=== PATIENT | male | born 1940 | race Caucasian/White ===

== ENCOUNTER 2017-08-18 12:01 | Inpatient (IN) ==
[2017-08-18 12:25] LABS: Basophils # (Auto) 0 K/mcL (0.0-0.3); Basophils % (Auto) 0.2 % (0.0-2.0); Eosinophils # (Auto) 0.1 K/mcL (0.0-0.7); Eosinophils % (Auto) 1.5 % (0.0-7.0); Granulocytes % (Auto) 81.3 % (38.0-78.0); Lymphocytes # (Auto) 0.5 K/mcL (1.5-4.8); Lymphocytes % (Auto) 8.8 % (15.5-49.0); Mean Cell Volume 84.7 fL (80.0-100.0); Mean Corpuscular HGB Conc 33.3 g/dL (31.0-36.0); Mean Corpuscular Hemoglobin 28.2 pg (26.0-34.0); Monocytes # (Auto) 0.5 K/mcL (0.1-0.9); Monocytes % (Auto) 8.2 % (1.0-12.0); Platelet Count 85 K/mcL (140-440); RBC 3.89 M/mcL (4.50-5.90); Red Cell Distribution Width 14.6 % (11.5-14.5)
[2017-08-18] MEDS ORDERED: SODIUM POLYSTYRENE SULFONATE 15 GM/60 ML SUSPENSION PO ONE ×2 (12:34→17:17)
[2017-08-18] MEDS ORDERED: CALCIUM GLUCONATE 4.65 MEQ in DEXTROSE 5% IN WATER 50 ML IV ONE (12:34)
[2017-08-18] MEDS: 0.9 % SODIUM CHLORIDE 1,000 ML IV SCH (12:50)
[2017-08-18] MEDS ORDERED: CALCIUM CHLORIDE 1,000 MG/10 ML SYRINGE IV ONE (13:11)
--- NOTE | 2017-08-18 16:10 | Emergency Department Note ---
Recheck HPI - General Chief Complaint: Recheck/Abnormal Lab/Rx Stated Complaint: Hyperkalemia Time Seen by Provider: 08/18/17 15:09 Source: patient Mode of arrival: ambulatory Limitations: no limitations - History of Present Illness HPI Narrative: Elevated potassium 6.8 preop. Planning for left elbow bursa washout due to infection. Send over for further evaluation. Denies complaint,recently hospitalized at [facility] with similar findings but no symptoms. 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 No change in meds. No other concerns no chest pain or palpitations. notes that he is slightly weak in amount - Related Data Home Medications Medication Instructions Recorded Confirmed Carvedilol [Coreg] 25 mg PO BID 08/18/17 08/18/17 Finasteride [Proscar] 5 mg PO DAILY 08/18/17 08/18/17 Furosemide [Lasix] 20 mg PO DAILY 08/18/17 08/18/17 Lisinopril [Zestril] 20 mg PO DAILY 08/18/17 08/18/17 PARoxetine [Paxil] 20 mg PO DAILY 08/18/17 08/18/17 Pramipexole [Mirapex] 1 mg PO HS 08/18/17 08/18/17 Pregabalin [Lyrica] 120 mg PO BID 08/18/17 08/18/17 Spironolactone [Aldactone] 25 mg PO DAILY 08/18/17 08/18/17 traZODone HCL [Trazodone HCl] 50 mg PO DAILY 08/18/17 08/18/17 Allergies Allergy/AdvReac Type Severity Reaction Status Date / Time No Known Drug Allergies Allergy Verified 08/18/17 12:04 Review of Systems All systems ED: reviewed and negative except as stated. Past Medical History - Past Medical History Attestation: Yes: The following information was validated with the patient. Medical history: Reports: CHF, coronary artery disease Surgical history ED: Reports: non-contributory Family history: Reports: non-contributory - Social History smoking status: Never smoker Physical Exam Limitations: no limitations General appearance: alert, in no apparent distress Eye: Present: normal appearance ENT: normal exam, mucous membranes moist Neck: Present: normal inspection. Absent: lymphadenopathy Chest: Present: normal inspection Respiratory: Present: normal lung sounds bilaterally. Absent: respiratory distress Cardiovascular: Present: regular rate. Absent: systolic murmur Abdominal: Present: soft. Absent: tenderness Extremities: Present: other (2+ edema; left elbow bandaged, no active drainage or cellulitis beyond the bandage) Neurological: Present: alert, oriented X3 Skin: Present: warm Course Vital Signs Temperature 97.2 F 08/18/17 12:01 Pulse Rate 105 H 08/18/17 12:01 Respiratory Rate 20 08/18/17 12:01 Blood Pressure 130/75 08/18/17 12:01 Pulse Oximetry (%) 98 08/18/17 12:01 Temperature 97.2 F 08/18/17 12:01 Pulse Rate 55 L 08/18/17 15:46 Respiratory Rate 15 08/18/17 15:46 Blood Pressure 116/51 08/18/17 15:46 Pulse Oximetry (%) 96 08/18/17 15:46 Recheck/Abnormal Lab/Rx - Lab Data Lab results reviewed: Yes I reviewed the patient's lab results. Result diagrams: 08/18/17 12:14 Lab Results 08/18/17 08/18/17 08/18/17 Range/Units 12:14 12:23 15:36 WBC 5.7 (4.5-11.0) K/mcL RBC 3.89 L (4.50-5.90) M/mcL Hgb 11.0 L (13.5-16.5) g/dL Hct 32.9 L (41.0-55.0) % POC Hct 34.0 L 30.0 L (41.0-55.0) % MCV 84.7 (80.0-100.0) fL MCH 28.2 (26.0-34.0) pg MCHC 33.3 (31.0-36.0) g/dL RDW 14.6 H (11.5-14.5) % Plt Count 85 L (140-440) K/mcL MPV 10.8 H (7.4-10.4) fL Gran % 81.3 H (38.0-78.0) % Lymph % (Auto) 8.8 L (15.5-49.0) % [place] % (Auto) 8.2 (1.0-12.0) % Eos % (Auto) 1.5 (0.0-7.0) % Baso % (Auto) 0.2 (0.0-2.0) % Gran # 4.6 (1.8-8.0) K/mcL Lymph # (Auto) 0.5 L (1.5-4.8) K/mcL [place] # (Auto) 0.5 (0.1-0.9) K/mcL Eos # (Auto) 0.1 (0.0-0.7) K/mcL Baso # (Auto) 0 (0.0-0.3) K/mcL POC Sodium 131 L 133 (133-145) mmol/L POC Potassium 6.8 H* 6.0 H* (3.3-5.1) mmol/L POC Chloride 103 101 (96-108) mmol/L POC Total CO2 23 24 (22-30) mmol/L POC BUN 42 H 38 H (8-23) mg/dl POC Creatinine 2.2 H 2.2 H (0.7-1.2) mg/dl POC Glucose 89 135 H (70-105) mg/dL POC WB Ioniz Calcium 1.11 L 1.14 L (1.16-1.32) mmol/L - EKG Data EKG attestation: Yes I reviewed and interpreted this EKG. EKG results narrative: Slight peaked T's EKG shows normal: sinus rhythm Disposition Pt seen by MAINTENA[employer]CE [employer]/PA only: No Clinical Impression: Hyperkalemia Summary: Acute on chronic, no hemodynamic instability Suspect due to combination Aldactone and MARYA inhibitor Kayexalate, calcium gluconate, fluids causing partial reversal Patient pending for surgery tomorrow, admitted for observation and monitoring Disposition: Xfer As Outpt/Obs ([facility]) Condition: Good Referrals: Ed Charles DO [Primary Care Provider] -
--- NOTE | 2017-08-18 16:55 | Internal Med History&Physical ---
Medical - H&P: HPI Patient information: Note initiated : 08/18/17 at 4:49 pm Service Date, if different from initiated Date: [] Patient: Lawrence Tompkins a 76 y/o M admitted on for Hyperkalemia. Chief Complaint: [] History of present illness: Mr. Tompkins is a 76 year old M with history of heart failure, and multiple other medical problems presents to the emergency room today after being sent there from outpatient same-day surgery. The patient had been in the same day surgery suit for drainage of his infected bursa. His preop labs showed elevated potassium and therefore he was sent to the emergency room. The patient had no acute complaints or concerns. The patient has been started on Bactrim and Keflex by his surgeon I believe 3 or 4 days ago. The patient has a history of heart failure, was admitted at [facility] approximately a month ago I believe at the end of June with symptoms of heart failure. He also had similar problems with potassium at that time. His potassium was elevated. He was advised to stop his Aldactone and increase the dose of Lasix at the time of discharge. The patient however is still taking Aldactone or spironolactone at this time. I do not think he has made any changes to his dose of Lasix. The patient is also on lisinopril. In the ER the patient denies any acute complaints, admit to having some changes in vision, which makes it difficult to read, denies any headaches, chr dizziness alysa when standing, he has chronic shortness of breath that has been getting worse over the last few months. He has increased swelling in his legs and admits to weight gain. He also admits to distention of abdomen and irregular bowels in which he has intermittent constipation and diarrhea. Denies any acute constipation at present. In the emergency room patient had stable vital signs, had no increased oxygen needs, was afebrile, blood pressure on the lower end of normal. In the emergency room it was noted his potassium was 6.8, he received calcium gluconate as well as Kayexalate. Repeat potassium came down to 6.0. Patient also has elevated creatinine his creatinine at baseline was 1.6 from previous discharge, creatinine was 2.2 today. Patient is being admitted to the hospital given persistent hyperkalemia, worsening renal function. He wishes to be full code. All systems: reviewed and no additional remarkable complaints except as stated ( 10 point ROS done, neg as except for HPI) Medical - H&P: PMH Medical history: CAD, cath 2011 , follows with Dr Myla Chambers, [facility] pacemaker 2009 TIA HTN HLD Afib BPH FEMI, does not wear cpap Anxiety with depression RLS Chr thrombocytopenia CHF with preserved ventricular function Surgical history: hj/o appendectomy right knee sx, left ankle sx Pertinent family history: sister had AMI in her 50's brother with colon cancer mother RA Father with CAD and several OR Social history: lives in [facility] 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 Medical - H&P: Meds Home Medications Medication Instructions Recorded Confirmed Type Carvedilol [Coreg] 25 mg PO BID 08/18/17 08/18/17 History Finasteride [Proscar] 5 mg PO DAILY 08/18/17 08/18/17 History Furosemide [Lasix] 20 mg PO DAILY 08/18/17 08/18/17 History Lisinopril [Zestril] 20 mg PO DAILY 08/18/17 08/18/17 History PARoxetine [Paxil] 20 mg PO DAILY 08/18/17 08/18/17 History Pramipexole [Mirapex] 1 mg PO HS 08/18/17 08/18/17 History Pregabalin [Lyrica] 120 mg PO BID 08/18/17 08/18/17 History Spironolactone [Aldactone] 25 mg PO DAILY 08/18/17 08/18/17 History traZODone HCL [Trazodone HCl] 50 mg PO DAILY 08/18/17 08/18/17 History Allergies Allergy/AdvReac Type Severity Reaction Status Date / Time No Known Drug Allergies Allergy Verified 08/18/17 12:04 Medical - H&P: Exam - Constitutional Vitals: Temp Pulse Resp BP Pulse Ox 97.2 F 52 L 24 H 105/51 97 08/18/17 12:01 08/18/17 16:01 08/18/17 16:01 08/18/17 16:02 08/18/17 16:01 Exam: GENERAL: The patient is a well-developed, well-nourished in no apparent distress. Is alert and oriented x3. VITAL SIGNS: Reviewed and as noted elsewhere. HEENT: Head is normocephalic and atraumatic. Extraocular muscles are intact. Pupils are equal, round, and reactive to light. Nares appeared normal. Mouth appears any without lesions. Mucous membranes are moist. NECK: Normal to inspection, Supple, No lymphadenopathy or thyromegaly. LUNGS: Air entry equal on both sides, no wheezing, crackles or rhonchi noted. No accessory muscles of respiration HEART: Regular rate and rhythm normal, S1 and S2 heard, no Gallop, S3 or Rub Noted, systolic murmur, mitral region grade 3 ABDOMEN: Soft, nontender, and nondistended. Positive bowel sounds. No hepatosplenomegaly was noted. EXTREMITIES: No cyanosis, clubbing, rash, lesions , edema present ++ .left elbow covered in dressing. NEUROLOGIC: Cranial nerves II through XII are grossly intact. Motor and Sensory System Grossly Intact PSYCHIATRIC: Normal affect, Normal Mood. Appropriate Behavior. SKIN: No ulceration or wounds noted, No jaundice, No rash noted. Medical - H&P: Reslt - Labs CBC & Chem 7: 08/18/17 12:14 Labs: Short CBC 08/18/17 Range/Units 12:14 WBC 5.7 (4.5-11.0) K/mcL Hgb 11.0 L (13.5-16.5) g/dL Hct 32.9 L (41.0-55.0) % Plt Count 85 L (140-440) K/mcL Medical - H&P: A/P - Narrative A/P Narrative: A/P Acute hyperkalemia: secondary to Aldactone and MARYA, Use of Bactrim may have complicated picture, will hold all three meds for now, monitor on tele, IV fluids given in ER, Kayexalate and Torri given, will repeat dose of Kayexalate 30gms and recheck labs. Will have to hold off on MARYA or Aldactone in future. He was advised to hold off on Aldactone in his previous admission, but it seems he still continued to take it Infectious bursitis: start on vanco/ rocephin for now, ortho for InD tomorrow. Dizzines: Likely orthostatic in nature, hold bp meds Afib/ s/p pacemaker: supposed to be on sotalol as per discharge summary,not on present med list, will try to get proper med list, [facility] only filled antibiotics it seems CHF with preserved LVEF: on aldactone for same, also on lisionpril and sotalol. hold aldactone and lisninopril for now. get CXR HTN: hold meds for now till verfied Anxiety/ Depression: resume home meds DVT hep sq Diet cardiac Full code Obs status, anticipate d/c within 2 midnights.
[2017-08-18] MEDS ORDERED: VANCOMYCIN PER PHARMACY IV SCH (17:17)
[2017-08-18] MEDS ORDERED: NALOXONE HCL 0.4 MG/ML VIAL IV PRN (17:17)
[2017-08-18] MEDS ORDERED: ONDANSETRON 4 MG/2 ML VIAL IV PRN (17:17)
[2017-08-18] MEDS ORDERED: cefTRIAXone 2 GM VIAL IV SCH (17:17)
[2017-08-18] MEDS ORDERED: ACETAMINOPHEN 325 MG TABLET PO PRN (17:17)
--- NOTE | 2017-08-18 17:57 | XRay Report ---
CLINICAL INFORMATION: CHF COMPARISON: 05/15/2012 FINDINGS: Moderate cardiomegaly is unchanged. Pacemaker leads in stable satisfactory stable position. Mediastinum and pulmonary vessels are slightly distended and there is minimal interstitial edema in the lateral bases. Moderate sized consolidated infiltrate seen in the left base with small effusion. Small right basilar infiltrate noted. IMPRESSION: Moderate consolidated infiltrate or atelectasis left lower lobe with small effusion. Small infiltrate in the right lower lobe Mild CHF Interpreted and Authenticated by: Dutch Patel 08/18/17
[2017-08-18 18:28] LABS: Blood Urea Nitrogen 41 mg/dl (8-23)
[2017-08-18] MEDS ORDERED: FUROSEMIDE 40 MG/4 ML VIAL IV ONE (19:05)
[2017-08-18] MEDS: CARVEDILOL 12.5 MG TABLET PO SCH (19:31)
[2017-08-18] MEDS: PIPERACILLIN SODIUM/TAZOBACTAM 2.25 GM in DEXTROSE 5% IN WATER 50 ML IV SCH (19:57)
[2017-08-18] MEDS: cefTRIAXone 2 GM in DEXTROSE 5% IN WATER 50 ML IV SCH (20:46)
[2017-08-18] MEDS: PREGABALIN 100 MG CAPSULE PO SCH (20:54)
[2017-08-18] MEDS: PRAMIPEXOLE 1 MG TABLET PO SCH (20:55)
[2017-08-18] MEDS: HEPARIN 5,000 UNIT/ML VIAL SQ SCH (20:55)
[2017-08-18] MEDS ORDERED: VANCOMYCIN 1,000 MG in 0.9 % SODIUM CHLORIDE 250 ML IV ONE (21:00)
[2017-08-18] MEDS: 0.9 % SODIUM CHLORIDE 10 ML SYRINGE IV SCH (21:28)
[2017-08-18 22:10] LABS: Blood Urea Nitrogen 39 mg/dl (8-23)
[2017-08-18] MEDS ORDERED: traZODone HCL 50 MG TABLET ONE (22:21)
[2017-08-18] MEDS: traZODone HCL 50 MG TABLET PO SCH (22:29)
[2017-08-19] MEDS: 0.9 % SODIUM CHLORIDE 1,000 ML IV SCH (00:36)
[2017-08-19] MEDS: PIPERACILLIN SODIUM/TAZOBACTAM 2.25 GM in DEXTROSE 5% IN WATER 50 ML IV SCH ×5 (00:37→23:58)
[2017-08-19 05:37] LABS: Basophils # (Auto) 0 K/mcL (0.0-0.3); Basophils % (Auto) 0.3 % (0.0-2.0); Eosinophils # (Auto) 0.1 K/mcL (0.0-0.7); Eosinophils % (Auto) 1.9 % (0.0-7.0); Granulocytes % (Auto) 76.1 % (38.0-78.0); Lymphocytes # (Auto) 0.6 K/mcL (1.5-4.8); Mean Cell Volume 84.9 fL (80.0-100.0); Mean Corpuscular HGB Conc 33.1 g/dL (31.0-36.0); Mean Corpuscular Hemoglobin 28.1 pg (26.0-34.0); Monocytes # (Auto) 0.5 K/mcL (0.1-0.9); Monocytes % (Auto) 9.7 % (1.0-12.0); Platelet Count 82 K/mcL (140-440); RBC 3.64 M/mcL (4.50-5.90); Red Cell Distribution Width 14.3 % (11.5-14.5)
[2017-08-19 05:55] LABS: ALT/SGPT 19 U/l (0-40); Albumin 3.4 gm/dL (3.2-5.2); Albumin/Globulin Ratio 1.1 (1.0-2.3); Alkaline Phosphatase 66 U/L (39-117); Bilirubin,Direct < 0.2 mg/dL (0.0-0.3); Blood Urea Nitrogen 36 mg/dl (8-23); Gamma Glutamyl Transpeptidase 16 U/L (8-61); Uric Acid 7.5 mg/dL (2.5-8.0)
[2017-08-19] MEDS: 0.9 % SODIUM CHLORIDE 10 ML SYRINGE IV SCH ×5 (06:01→21:07)
--- NOTE | 2017-08-19 06:32 | XRay Report ---
CLINICAL INFORMATION: Pneumonia COMPARISON: 05/15/2012 08/18/2017 FINDINGS: Single lateral view is submitted correspond with a frontal view obtained two hours prior Moderate cardiomegaly is unchanged. Pacemaker leads in stable satisfactory position. Moderate left pleural effusion is noted with a small region consolidated atelectasis and/or infiltrate in the left lower lobe and lingula IMPRESSION: Moderate left pleural effusion. Small region of consolidated atelectasis or infiltrate inferior left lower lobe and lingula. Interpreted and Authenticated by: Dutch Patel 08/19/17
[2017-08-19] MEDS ORDERED: SODIUM POLYSTYRENE SULFONATE 15 GM/60 ML SUSPENSION PO ONE (06:58)
[2017-08-19] MEDS ORDERED: DEXTROSE 50% 50 ML VIAL IV ONE (06:58)
[2017-08-19] MEDS ORDERED: INSULIN REGULAR, HUMAN 1 UNIT/0.01 ML UNIT IV ONE (06:59)
[2017-08-19] MEDS ORDERED: FUROSEMIDE 40 MG/4 ML VIAL IV ONE (07:43)
[2017-08-19] MEDS ORDERED: ALBUTEROL SULFATE 2.5 MG/3 ML NEBULIZER ONE ×2 (07:57→08:14)
[2017-08-19] MEDS ORDERED: ALBUTEROL SULFATE 2.5 MG/3 ML NEBULIZER NEB SCH (08:07)
--- NOTE | 2017-08-19 08:20 | XRay Report ---
CLINICAL INFORMATION: CHF COMPARISON: 08/18/2017 FINDINGS: Moderate cardiomegaly is unchanged. Pacemaker and leads in stable satisfactory position. Mediastinum is unremarkable. Pulmonary vessels returned to normal in caliber. There is minimal residual interstitial edema in the mid and lower lungs. Left pleural effusion has decreased with [id number] residual. Small region of atelectasis or less likely infiltrate left base improved IMPRESSION: 1. Resolution in CHF. Only minimal residual edema in the mid lateral bases. No vascular congestion 2. Small/moderate left pleural effusion - improved from yesterday. Mild left lower lobe atelectasis Interpreted and Authenticated by: Dutch Patel 08/19/17
[2017-08-19] MEDS: CARVEDILOL 12.5 MG TABLET PO SCH ×2 (08:45→17:46)
[2017-08-19] MEDS: HEPARIN 5,000 UNIT/ML VIAL SQ SCH ×2 (08:46→21:05)
[2017-08-19] MEDS ORDERED: PREGABALIN 75 MG CAPSULE PO SCH (09:00)
[2017-08-19] MEDS ORDERED: PREGABALIN 150 MG CAPSULE PO SCH (09:00)
[2017-08-19] MEDS: FINASTERIDE 5 MG TABLET PO SCH (09:11)
[2017-08-19] MEDS: PARoxetine 20 MG TABLET PO SCH (09:11)
[2017-08-19] MEDS: PREGABALIN 100 MG CAPSULE PO SCH (09:17)
[2017-08-19] MEDS: traZODone HCL 50 MG TABLET PO SCH ×2 (09:17→22:27)
[2017-08-19] MEDS: VANCOMYCIN 1,500 MG in 0.9 % SODIUM CHLORIDE 500 ML IV SCH (09:37)
--- NOTE | 2017-08-19 11:36 | Internal Med Progress Note ---
Medical - PN: Subj Patient information: Note initiated : 08/19/17 at 11:32 am Service Date, if different from initiated Date: [] Patient: Lawrence Tompkins a 76 y/o M admitted on 08/18/17 for Hyperkalemia. Chief Complaint: [] Interval history: Mr. Tompkins is a 76 year old M with history of heart failure, and multiple other medical problems presents to the emergency room today after being sent there from outpatient same-day surgery. The patient had been in the same day surgery suit for drainage of his infected bursa. His preop labs showed elevated potassium and therefore he was sent to the emergency room. The patient had no acute complaints or concerns. The patient has been started on Bactrim and Keflex by his surgeon I believe 3 or 4 days ago. The patient has a history of heart failure, was admitted at [facility] approximately a month ago I believe at the end of June with symptoms of heart failure. He also had similar problems with potassium at that time. His potassium was elevated. He was advised to stop his Aldactone and increase the dose of Lasix at the time of discharge. The patient however is still taking Aldactone or spironolactone at this time. I do not think he has made any changes to his dose of Lasix. The patient is also on lisinopril. In the ER the patient denies any acute complaints, admit to having some changes in vision, which makes it difficult to read, denies any headaches, chr dizziness alysa when standing, he has chronic shortness of breath that has been getting worse over the last few months. He has increased swelling in his legs and admits to weight gain. He also admits to distention of abdomen and irregular bowels in which he has intermittent constipation and diarrhea. Denies any acute constipation at present. In the emergency room patient had stable vital signs, had no increased oxygen needs, was afebrile, blood pressure on the lower end of normal. In the emergency room it was noted his potassium was 6.8, he received calcium gluconate as well as Kayexalate. Repeat potassium came down to 6.0. Patient also has elevated creatinine his creatinine at baseline was 1.6 from previous discharge, creatinine was 2.2 today. Patient is being admitted to the hospital given persistent hyperkalemia, worsening renal function. He wishes to be full code. 08/19 Pt seen examined, no acute overnight issues, his cxr concerning for chf and pna , he was started on abx, and IV lasix given, this AM repeat CXR shows resolved chf, and left side effusion with atelectasis. procalcitonin is neg, The patient notes he has had some accident in the past, and has had left sided lung issues, his previous imaging including CTA done in the previous hsopitaliztion does not show any malignancy. The patient remains hyperkalemic, K was 5.9 yesterday, and is 5.8 today, creat is 2.3 garduno placed with clear urine draining, pt is neg 4500 so far repeat kayexalate given, albuterol harrt neg, IV lasix, dextrose and insulin given this AM, repeat K is pending, if improved ok to go for surgery Given persistent hyperkalemia, concern for chf, pna, hang, his status was changed to inpt status since yesterday Pertinent ROS: Denies headache, dizziness Denies chest pain, palpitations Denies cough or shortness of breath Denies abdominal pain, nausea or vomiting. - Constitutional Vitals: Vital Signs Temp Pulse Resp BP Pulse Ox 98.3 F 66 20 129/66 98 08/19/17 07:41 08/19/17 08:29 08/19/17 08:29 08/19/17 07:41 08/19/17 07:41 Period Temp Pulse Resp BP Sys/Burnett Pulse Ox Last 24 Hr 97.2 F-98.9 F 41-133 13-24 105-165/44-133 87-99 Intake and Output 08/18/17 08/19/17 08/19/17 21:59 05:59 13:59 Intake Total 1050 / 1050 650 / 650 50 / 50 Output Total 1800 / 1800 2450 / 2450 1350 / 1350 Balance -750 / -750 -1800 / -1800 -1300 / -1300 Weight 210 lb 3.2 oz Intake & Output: Intake & Output 08/18/17 08/19/17 08/19/17 21:59 05:59 13:59 Intake Total 1050 / 1050 650 / 650 50 / 50 Output Total 1800 / 1800 2450 / 2450 1350 / 1350 Balance -750 / -750 -1800 / -1800 -1300 / -1300 Weight 210 lb 3.2 oz Intake: IV 1050 / 1050 350 / 350 50 / 50 Sodium Chloride 0.9% 1,000 ml @ 1000 / 1000 250 mls/hr IV .Q4H [facility] Rx#: [id number] Zosyn 2.25 gm In Dextrose 5% in 50 / 50 50 / 50 50 / 50 Water 50 ml @ 100 mls/hr IV Q6H [facility] Rx#:[id number] Rocephin 2 gm In Dextrose 5% in 50 / 50 Water 50 ml @ 100 mls/hr IV Q24H [facility] Rx#:[id number] GI Tube Flush 300 / 300 Output: Urine Catheter Amount 850 / 850 Urine/Stool Mix 1800 / 1800 2450 / 2450 500 / 500 Other: Stool Size Moderate Small Stool Color Yellow Brown Brown Stool Consistency Watery Liquid Liquid # of times incontinent of 1 Bowels Exam: Constitutional; Afebrile, cooperative, alert, not in distress. Eyes- No icterus, , No periorbital swelling Ears- Ext ear normal, hearing normal to conversation. Neck- Midline trachea, supple Respiratory system: Air Entry equal on both sides, No crackles or wheezing, no rhonchi. CVS- Rate rhythm regular, S1,S2 heard, no gallop, no rub. 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 Medical - PN: Obj Da - Labs CBC & Chem 7: 08/19/17 03:40 08/19/17 03:40 Labs: Abnormal Lab Results 08/19/17 08/19/17 08/18/17 03:40 03:40 17:29 RBC 3.64 L Hgb 10.2 L Hct 30.9 L POC Hct RDW Plt Count 82 L MPV 10.7 H Gran % Lymph % (Auto) 12.0 L Lymph # (Auto) 0.6 L POC Sodium POC Potassium Potassium 5.8 H 5.9 H* Chloride 95 L POC BUN BUN 36 H 39 H Creatinine 2.3 H 2.0 H POC Creatinine POC Glucose Calcium 8.3 L 8.5 L POC WB Ioniz Calcium 08/18/17 08/18/17 08/18/17 17:29 15:36 12:23 RBC Hgb Hct POC Hct 30.0 L 34.0 L RDW Plt Count MPV Gran % Lymph % (Auto) Lymph # (Auto) POC Sodium 131 L POC Potassium 6.0 H* 6.8 H* Potassium 6.0 H* Chloride POC BUN 38 H 42 H BUN 41 H Creatinine 2.2 H POC Creatinine 2.2 H 2.2 H POC Glucose 135 H Calcium 8.5 L POC WB Ioniz Calcium 1.14 L 1.11 L 08/18/17 12:14 RBC 3.89 L Hgb 11.0 L Hct 32.9 L POC Hct RDW 14.6 H Plt Count 85 L MPV 10.8 H Gran % 81.3 H Lymph % (Auto) 8.8 L Lymph # (Auto) 0.5 L POC Sodium POC Potassium Potassium Chloride POC BUN BUN Creatinine POC Creatinine POC Glucose Calcium POC WB Ioniz Calcium Meds: Medications Acetaminophen (Tylenol) 650 mg PO Q6HP PRN PRN Reason: PAIN/FEVER > 101 Carvedilol (Coreg) 25 mg PO BIDCC [facility] Last Admin: 08/19/17 08:45 Dose: 25 mg Finasteride (Proscar) 5 mg PO DAILY [facility] Last Admin: 08/19/17 09:11 Dose: 5 mg Heparin Sodium (Porcine) (Heparin) 5,000 unit SQ Q12 [facility] Last Admin: 08/19/17 08:46 Dose: 5,000 unit Piperacillin Sod/Tazobactam (Sod 2.25 gm/ Dextrose) 50 mls @ 100 mls/hr IV Q6H [facility] Last Infusion: 08/19/17 06:02 Dose: Infused Ceftriaxone Sodium 2 gm/ (Dextrose) 50 mls @ 100 mls/hr IV Q24H [facility] Last Infusion: 08/19/17 00:35 Dose: Infused Vancomycin HCl 1,500 mg/ (Sodium Chloride) 500 mls @ 250 mls/hr IV Q24H [facility] Last Admin: 08/19/17 09:37 Dose: 333 mls/hr Naloxone HCl (Narcan) 0.1 mg IV Q2MIN PRN PRN Reason: Opiate Reversal Ondansetron HCl (Zofran) 4 mg IV Q4HP PRN PRN Reason: Nausea And Vomiting Oxycodone/Acetaminophen (Percocet 5-325 Mg) 1 tab PO Q4HP PRN PRN Reason: PAIN LEVEL 3-6 Paroxetine HCl (Paxil) 20 mg PO DAILY [facility] Last Admin: 08/19/17 09:11 Dose: 20 mg Pramipexole Dihydrochloride (Mirapex) 1 mg PO HS [facility] Last Admin: 08/18/17 20:55 Dose: 1 mg Pregabalin (Lyrica) 120 mg PO BID [facility] Last Admin: 08/19/17 09:17 Dose: Not Given Sodium Chloride (Saline Flush) 10 ml IV Q8 [facility] Last Admin: 08/19/17 07:36 Dose: 10 ml Trazodone HCl (Desyrel) 50 mg PO DAILY [facility] Last Admin: 08/19/17 09:17 Dose: Not Given Vancomycin HCl (Vancomycin Per Pharmacy) 1 order IV UD [facility] Medical - PN: A/P - Time Spent With Patient Total time spent is greater than 50% in coordination of care (as documented) at patient's floor/unit and/or counseling patient: - Narrative A/P Narrative: A/P Acute hyperkalemia: still present, rest of lytes stable, no elevation of phos, or mg, or uric acid, garduno placed, remains on tele monitor, repeat dose of kayexalate given, IV lasix and albuterol with insulin and d50 given. repeat K, still likely due to medications, renal failure playing a role. chr thyrombocytopenia : pchr issue, Plat[place] count > 75, monitor for now. Infectious bursitis: vs septic elbow? on vanco and zosyn for now, plan for sx today if K is improved PNA/ HCAP: noted on x ray done yesterday, not sure if true pna, procalcitonin is neg, pt does have chr changes in the left side as noted on previous imaging, continue abx for now till cultures are negative, no e/o sepsis Dizzines: Likely orthostatic in nature, he does have elevated hr on orthostatics. Afib/ s/p pacemaker: resume sotalol, continue coreg, CHF with preserved LVEF: on aldactone for same, also on lisionpril and sotalol. hold aldactone and lisninopril for now. mild chf noted yesterday has resolved today, not on oxgyen HTN: resume meds except lisinopril and aldactone. Anxiety/ Depression: resume home meds DVT hep sq npo status for now Full code Medical - PN: Qual - Stroke Symptom Onset Unknown: No - VTE Deep Vein Thrombosis/Pulmonary Embolism Present on Admission: No
[2017-08-19] MEDS ORDERED: TEMAZEPAM 7.5 MG PO PRN (11:41)
[2017-08-19] MEDS ORDERED: PRAMIPEXOLE 0.25 MG TABLET PO PRN (11:45)
[2017-08-19 12:23] LABS: Blood Urea Nitrogen 32 mg/dl (8-23)
[2017-08-19] MEDS ORDERED: 0.9 % SODIUM CHLORIDE 250 ML IV SCH (13:30)
--- NOTE | 2017-08-19 13:32 | Brief Operative Note ---
Date of procedure: 08/19/17 Pre-op diagnosis: left elbow olecranon bursitis Post-op diagnosis: same Procedure: left olecranon septic bursitis debridement and irrigate Grafts/Implants: Yes Anesthesia: GETA Complications Description: 08/19/17 13:32 none Surgeon: Junaid Tatum Stationary Equipment Mechanic: Fernando Edwards Estimated blood loss (cc): 10 Tourniquet Time (Minutes): 0 Specimens Removed/Pathology: none sent Condition: stable Disposition: PACU
[2017-08-19] MEDS ORDERED: HYDROcodone/APAP 5/325MG TABLET PO PRN (13:33)
[2017-08-19] MEDS ORDERED: PHENYLEPHRINE 10 MG/ML VIAL IV ONE (13:45)
[2017-08-19] MEDS ORDERED: ePHEDrine 50 MG/ML AMPUL IV ONE (13:45)
[2017-08-19] MEDS ORDERED: CIALIS 10 MG PO SCH (13:45)
[2017-08-19] MEDS ORDERED: DEXAMETHASONE 10 MG/ML VIAL IV ONE (13:45)
[2017-08-19] MEDS ORDERED: KETAMINE 100 MG/ML ML IV ONE (13:45)
[2017-08-19] MEDS ORDERED: ONDANSETRON 4 MG/2 ML VIAL IV ONE (13:45)
[2017-08-19] MEDS ORDERED: PROPOFOL 200 MG/20 ML VIAL IV ONE (13:45)
[2017-08-19] MEDS ORDERED: MIDAZOLAM 2 MG/2 ML VIAL IV ONE (13:45)
[2017-08-19] MEDS ORDERED: LIDOCAINE HCL/PF 100 MG/5 ML SYRINGE IV ONE (13:45)
[2017-08-19] MEDS ORDERED: GLYCOPYRROLATE 0.2 MG/ML VIAL IV ONE (13:45)
--- NOTE | 2017-08-19 13:51 | Discharge Summary ---
Ortho Discharge Plan - General - Patient Instructions Diet: Regular Diet Activity: activity as tolerated, weight bearing as tolerated Dressing Care: May shower in 2 days, Cover dressing in shower - Follow Up Plan Follow Up Appointments: Ed Charles DO [Primary Care Provider] - Disposition: Home, Self-Care Prognosis: Good Rehab Potential: Good I certify that the patient requires SNF services: No Overall status at discharge: patient is progressing back to baseline - Orders For Discharge Prescriptions: oxyCODONE/APAP [Percocet 5-325 mg] 1 tab PO Q4HP PRN #60 tab PRN Reason: Pain Level 3-6
[2017-08-19] MEDS ORDERED: ceFAZolin 1 GM VIAL IV SCH (14:00)
[2017-08-19] MEDS ORDERED: 0.9 % SODIUM CHLORIDE 10 ML SYRINGE IV SCH (14:00)
[2017-08-19] MEDS ORDERED: GENTAMICIN SULFATE 800 MG/20 ML VIAL IR ONE (14:12)
[2017-08-19] MEDS ORDERED: IPRATROPIUM/ALBUTEROL 3 ML AMPUL.NEB NEB PRN (14:15)
[2017-08-19] MEDS ORDERED: METHOCARBAMOL 1,000 MG/10 ML VIAL IV PRN (14:15)
[2017-08-19] MEDS ORDERED: ACETAMINOPHEN 1,000 MG/100 ML BOTTLE IV ONE (14:15)
[2017-08-19] MEDS ORDERED: PROMETHAZINE 25 MG/ML VIAL IV PRN (14:15)
[2017-08-19] MEDS ORDERED: MEPERIDINE 25 MG/ML SYRINGE IV PRN (14:15)
[2017-08-19] MEDS ORDERED: ONDANSETRON 4 MG/2 ML VIAL IV PRN (14:15)
[2017-08-19] MEDS ORDERED: ATROPINE SULFATE 0.4 MG/ML VIAL IV PRN (14:15)
[2017-08-19] MEDS ORDERED: fentaNYL 100 MCG/2 ML VIAL IV PRN (14:15)
[2017-08-19] MEDS ORDERED: ePHEDrine 50 MG/ML AMPUL IV PRN (14:15)
[2017-08-19] MEDS ORDERED: METOPROLOL TARTRATE 5 MG/5 ML VIAL IV PRN (14:15)
[2017-08-19] MEDS ORDERED: diphenhydrAMINE 50 MG/ML VIAL IV PRN (14:15)
[2017-08-19] MEDS ORDERED: NALOXONE HCL 0.4 MG/ML VIAL IV PRN (14:15)
[2017-08-19] MEDS: cefTRIAXone 2 GM in DEXTROSE 5% IN WATER 50 ML IV SCH (16:12)
[2017-08-19] MEDS: FUROSEMIDE 40 MG/4 ML VIAL IV SCH (17:15)
[2017-08-19] MEDS: PREGABALIN 75 MG CAPSULE PO SCH (21:04)
[2017-08-19] MEDS: SIMVASTATIN 40 MG TABLET PO SCH (21:05)
[2017-08-19] MEDS: PRAMIPEXOLE 1 MG TABLET PO SCH (21:05)
[2017-08-19] MEDS: MAGNESIUM OXIDE 400 MG TABLET PO SCH (21:05)
[2017-08-19] MEDS: TAMSULOSIN 0.4 MG CAPSULE PO SCH (21:05)
[2017-08-19] MEDS: SOTALOL 80 MG TABLET PO SCH (21:06)
[2017-08-20] MEDS: oxyCODONE/APAP 5/325MG TABLET PO PRN ×2 (02:06→22:41)
[2017-08-20 05:05] LABS: Basophils # (Auto) 0 K/mcL (0.0-0.3); Basophils % (Auto) 0.2 % (0.0-2.0); Eosinophils # (Auto) 0 K/mcL (0.0-0.7); Eosinophils % (Auto) 0 % (0.0-7.0); Granulocytes % (Auto) 83.9 % (38.0-78.0); Lymphocytes # (Auto) 0.5 K/mcL (1.5-4.8); Lymphocytes % (Auto) 11.4 % (15.5-49.0); Mean Cell Volume 84.8 fL (80.0-100.0); Mean Corpuscular HGB Conc 33.1 g/dL (31.0-36.0); Mean Corpuscular Hemoglobin 28.1 pg (26.0-34.0); Monocytes # (Auto) 0.2 K/mcL (0.1-0.9); Monocytes % (Auto) 4.5 % (1.0-12.0); Platelet Count 99 K/mcL (140-440); RBC 3.87 M/mcL (4.50-5.90); Red Cell Distribution Width 14.6 % (11.5-14.5)
[2017-08-20] MEDS: 0.9 % SODIUM CHLORIDE 10 ML SYRINGE IV SCH ×4 (05:27→22:43)
[2017-08-20] MEDS: PIPERACILLIN SODIUM/TAZOBACTAM 2.25 GM in DEXTROSE 5% IN WATER 50 ML IV SCH (05:28)
[2017-08-20 05:31] LABS: ALT/SGPT 14 U/l (0-40); Albumin 3.4 gm/dL (3.2-5.2); Albumin/Globulin Ratio 1.1 (1.0-2.3); Alkaline Phosphatase 59 U/L (39-117); Bilirubin,Direct < 0.2 mg/dL (0.0-0.3); Blood Urea Nitrogen 40 mg/dl (8-23); Gamma Glutamyl Transpeptidase 16 U/L (8-61); Uric Acid 8.5 mg/dL (2.5-8.0)
[2017-08-20] MEDS ORDERED: SODIUM POLYSTYRENE SULFONATE 15 GM/60 ML SUSPENSION PO ONE (08:12)
[2017-08-20] MEDS ORDERED: cefTRIAXone 2 GM VIAL IV SCH (08:15)
[2017-08-20] MEDS ORDERED: 0.9 % SODIUM CHLORIDE 250 ML IV ONE ×2 (08:36→15:39)
[2017-08-20] MEDS: PREGABALIN 75 MG CAPSULE PO SCH ×2 (08:58→20:17)
[2017-08-20] MEDS: GLUCOSAMINE/CHONDROITIN SULF A 1 CAP CAPSULE PO SCH ×2 (08:58→20:23)
[2017-08-20] MEDS: PARoxetine 20 MG TABLET PO SCH (08:58)
[2017-08-20] MEDS: FINASTERIDE 5 MG TABLET PO SCH (08:58)
[2017-08-20] MEDS: CARVEDILOL 12.5 MG TABLET PO SCH ×2 (08:59→16:54)
[2017-08-20] MEDS: ASPIRIN 81 MG TAB.CHEW PO SCH (08:59)
[2017-08-20] MEDS: MULTIVIT,THER IRON,CA,FA & MIN 1 TABLET PO SCH (08:59)
[2017-08-20] MEDS ORDERED: PRAVASTATIN SODIUM 80 MG PO SCH (09:00)
[2017-08-20] MEDS: cefTRIAXone 2 GM in DEXTROSE 5% IN WATER 50 ML IV SCH (09:00)
[2017-08-20] MEDS: DOCUSATE SODIUM 100 MG CAPSULE PO SCH (09:00)
[2017-08-20] MEDS: SOTALOL 80 MG TABLET PO SCH ×2 (09:18→20:16)
[2017-08-20] MEDS: FUROSEMIDE 40 MG/4 ML VIAL IV SCH (09:51)
[2017-08-20] MEDS: VANCOMYCIN 1,500 MG in 0.9 % SODIUM CHLORIDE 500 ML IV SCH (10:29)
[2017-08-20 10:42] LABS: Appearance,Urine CLEAR; Bacteria,Urine 0 /hpf (0); Bilirubin,Urine NEG (NEG); Color,Urine YELLOW; Glucose,Urine (UA) NEGATIVE (NEG); Leukocyte Esterase,Urine NEG /uL (NEG); Mucus,Urine FEW /hpf (0); Protein,Urine NEG (NEG); Specific Gravity,Urine 1.019 (1.000-1.035); Urine Blood NEG mg/dL (<0.03); Urine Hyaline Cast 1 /lpf (0-2); Urine RBC 2 /hpf (0-1); Urine Squamous Epithelial Cell 0 /hpf (0-4); Urine WBC 4 /hpf (0-4); Urobilinogen,Urine NEG (NEG)
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
--- NOTE | 2017-08-20 12:21 | Orthopedic Progress Note ---
Subjective Patient information: Note initiated : 08/20/17 at 12:17 pm Service Date, if different from initiated Date: [] Patient: Lawrence Tompkins 76 y/o M admitted on 08/18/17 for Hyperkalemia. Chief Complaint: [he feels good but is still having increases in in labs but eating well] Objective Vital signs: Vital Signs Temp Pulse Resp BP BP Pulse Ox 08/20/17 03:52 98.9 F 18 108/49 94 08/20/17 01:34 98.7 F 109/55 08/20/17 00:06 99.8 F H 20 96/41 94 08/19/17 21:23 98.2 F 20 105/55 94 08/19/17 18:34 101/49 08/19/17 17:06 16 123/69 97 08/19/17 16:33 16 121/58 94 08/19/17 16:19 16 96/69 94 08/19/17 15:46 16 114/63 94 08/19/17 15:29 97.8 F 16 115/58 95 08/19/17 15:18 97.8 F 68 15 117/59 97 08/19/17 15:13 72 18 116/54 97 08/19/17 15:08 74 15 121/50 98 08/19/17 15:03 67 16 115/50 100 08/19/17 14:58 66 16 106/47 100 08/19/17 14:53 67 16 106/48 100 08/19/17 14:48 99.5 F H 66 16 108/46 99 08/19/17 12:40 98.7 F 16 118/60 97 Intake and Output 08/19/17 08/20/17 08/20/17 21:59 05:59 13:59 Intake Total 1620 / 1620 350 / 350 300 / 300 Output Total 505 / 505 1015 / 1015 Balance 1115 / 1115 -665 / -665 300 / 300 Intake: IV 750 / 750 100 / 100 300 / 300 Sodium Chloride 0.9% 250 ml @ 250 / 250 Wide Open IV [facility] Rx#: [id number] Zosyn 2.25 gm In Dextrose 5% in 50 / 50 100 / 100 Water 50 ml @ 100 mls/hr IV Q6H [facility] Rx#:[id number] Rocephin 2 gm In Dextrose 5% in 50 / 50 Water 50 ml @ 100 mls/hr IV Q24H [facility] Rx#:[id number] Oral 380 / 380 GI Tube Flush 440 / 440 250 / 250 IV - Manual Only 50 / 50 Output: Drainage 15 / 15 Left Arm GERRI Drain 15 / 15 Urine Catheter Amount 475 / 475 1000 / 1000 Estimated Blood Loss 30 / 30 Other: Meal Dinner Percent of Meal Consumed 100% Feeding Ability Independent Weight 204 lb 3.2 oz Intake & Output: Intake & Output 08/19/17 08/20/17 08/20/17 21:59 05:59 13:59 Intake Total 1620 / 1620 350 / 350 300 / 300 Output Total 505 / 505 1015 / 1015 Balance 1115 / 1115 -665 / -665 300 / 300 Weight 204 lb 3.2 oz Intake: IV 750 / 750 100 / 100 300 / 300 Sodium Chloride 0.9% 250 ml @ 250 / 250 Wide Open IV [facility] Rx#: [id number] Zosyn 2.25 gm In Dextrose 5% in 50 / 50 100 / 100 Water 50 ml @ 100 mls/hr IV Q6H [facility] Rx#:[id number] Rocephin 2 gm In Dextrose 5% in 50 / 50 Water 50 ml @ 100 mls/hr IV Q24H [facility] Rx#:[id number] Oral 380 / 380 GI Tube Flush 440 / 440 250 / 250 IV - Manual Only 50 / 50 Output: Drainage 15 / 15 Left Arm GERRI Drain 15 / 15 Urine Catheter Amount 475 / 475 1000 / 1000 Estimated Blood Loss 30 / 30 Other: Meal Dinner Percent of Meal Consumed 100% Feeding Ability Independent Incision: Yes healing Incision clean and dry: Yes Dressing: Yes clean Weight bearing status: full Neurological exam IM: Yes oriented X3, Yes neurovascular intact Extremities exam IM: Yes pedal edema (continue with antibiotics until cultures are final and increase fluids), Yes Foot pink and warm, Yes neurovascular intact - Labs CBC & BMP: 08/20/17 03:50 08/20/17 03:50 Labs: Orthopedic Labs 08/19/17 12:28 PT 14.1 INR 1.1 08/20/17 08/19/17 08/18/17 03:50 03:40 12:14 Hgb 10.9 L 10.2 L 11.0 L Hct 32.8 L 30.9 L 32.9 L
[2017-08-20 15:15] LABS: Blood Urea Nitrogen 37 mg/dl (8-23)
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
--- NOTE | 2017-08-20 19:59 | Ultrasound Report ---
CLINICAL INFORMATION: Decreased renal function COMPARISON: None. FINDINGS: The kidneys are normal in size position and configuration: The left is 14 x 4 cm and the right is 12 x 5 cm. Echotexture is normal. Arterial blood flows grossly normal to both kidneys on color Doppler No focal renal lesion. Urinary bladder is decompressed by catheter but shows no gross abnormality IMPRESSION: Both kidneys are normal Interpreted and Authenticated by: Dutch Patel 08/20/17
[2017-08-20] MEDS: PRAMIPEXOLE 1 MG TABLET PO SCH (20:17)
[2017-08-20] MEDS: MAGNESIUM OXIDE 400 MG TABLET PO SCH (20:17)
[2017-08-20] MEDS: TAMSULOSIN 0.4 MG CAPSULE PO SCH (20:17)
[2017-08-20] MEDS: SIMVASTATIN 40 MG TABLET PO SCH (20:17)
[2017-08-20] MEDS: traZODone HCL 50 MG TABLET PO SCH (22:42)
[2017-08-21 05:36] LABS: Basophils # (Auto) 0 K/mcL (0.0-0.3); Basophils % (Auto) 0.6 % (0.0-2.0); Eosinophils # (Auto) 0 K/mcL (0.0-0.7); Eosinophils % (Auto) 0.8 % (0.0-7.0); Granulocytes % (Auto) 71.1 % (38.0-78.0); Lymphocytes # (Auto) 0.6 K/mcL (1.5-4.8); Lymphocytes % (Auto) 17.6 % (15.5-49.0); Mean Cell Volume 82.8 fL (80.0-100.0); Mean Corpuscular HGB Conc 33.4 g/dL (31.0-36.0); Mean Corpuscular Hemoglobin 27.6 pg (26.0-34.0); Monocytes # (Auto) 0.3 K/mcL (0.1-0.9); Monocytes % (Auto) 9.9 % (1.0-12.0); Platelet Count 92 K/mcL (140-440); RBC 3.71 M/mcL (4.50-5.90); Red Cell Distribution Width 13.5 % (11.5-14.5)
[2017-08-21] MEDS: 0.9 % SODIUM CHLORIDE 10 ML SYRINGE IV SCH ×4 (06:13→21:45)
--- NOTE | 2017-08-21 07:00 | Operative Note ---
DATE OF OPERATION: 08/19/2017 PREOPERATIVE DIAGNOSIS: Left elbow septic bursitis. POSTOPERATIVE DIAGNOSIS: Left elbow septic bursitis. PROCEDURE: Left elbow debridement and irrigation. ESTIMATED BLOOD LOSS: About 10 mL COMPLICATIONS: None. IMPLANTS: None. DESCRIPTION OF PROCEDURE: The patient was brought to the operating room and put to sleep with general LMA anesthesia. Once asleep, the patient had left arm sterilely prepped and draped in the usual sterile fashion. Timeout was performed, we confirmed the operative site. Once this was done, we made an incision posteriorly and excised at least part of the small abscess wounds that were thoroughly debrided. Once this was done, we then made the incision through the skin level and identified the abscesses. There were three fairly large abscesses, one that extended down to the posterior capsule. None of this extended into the joint. This seemed to just be involving the olecranon bursal region, then extended in the tricep tendon which was then debrided. Once thoroughly debrided and we used pulse lavage to irrigate the wound, I then placed a 1/8 inch drain. I used #3 Monocryl to close the fascial layer, repaired the skin with 4-0 nylon interrupted suture. Sterile bandage was applied. Once this was done, I then placed a posterior bulky dressing with Xeroform. A small portion of the infected tissue was sent for cultures. I irrigated thoroughly and the placed a bandage. The patient left the operating room in good condition. Blood loss 10 mL. INA:jose g Job ID: [id number] Doc ID: [id number] Junaid Tatum MD
[2017-08-21] MEDS: CARVEDILOL 12.5 MG TABLET PO SCH ×2 (07:41→17:10)
[2017-08-21 07:42] LABS: ALT/SGPT 13 U/l (0-40); Albumin 3.4 gm/dL (3.2-5.2); Albumin/Globulin Ratio 1.2 (1.0-2.3); Alkaline Phosphatase 51 U/L (39-117); Bilirubin,Direct < 0.2 mg/dL (0.0-0.3); Blood Urea Nitrogen 30 mg/dl (8-23); Gamma Glutamyl Transpeptidase 15 U/L (8-61); Vitamin B12 391.4 pg/ml (232-1245)
[2017-08-21 07:48] LABS: Hepatitis B Surface Antibody NEGATIVE (NEGATIVE); Hepatitis B Surface Antigen NEGATIVE (NEGATIVE); Hepatitis C Virus Antibody NON REACTIVE (NEGATIVE)
[2017-08-21] MEDS ORDERED: 0.9 % SODIUM CHLORIDE 10 ML SYRINGE IV PRN ×2 (08:16→18:16)
[2017-08-21] MEDS ORDERED: FUROSEMIDE 40 MG TABLET PO SCH (09:00)
[2017-08-21] MEDS ORDERED: 0.9 % SODIUM CHLORIDE 10 ML SYRINGE IV SCH ×2 (09:00→21:00)
[2017-08-21] MEDS ORDERED: COSYNTROPIN 0.25 MG VIAL IV ONE (09:13)
[2017-08-21] MEDS: ASPIRIN 81 MG TAB.CHEW PO SCH (09:45)
[2017-08-21] MEDS: PARoxetine 20 MG TABLET PO SCH (09:45)
[2017-08-21] MEDS: PREGABALIN 75 MG CAPSULE PO SCH (09:45)
[2017-08-21] MEDS: MULTIVIT,THER IRON,CA,FA & MIN 1 TABLET PO SCH (09:45)
[2017-08-21] MEDS: FINASTERIDE 5 MG TABLET PO SCH (09:45)
[2017-08-21] MEDS: SOTALOL 80 MG TABLET PO SCH ×2 (09:45→21:43)
[2017-08-21] MEDS: GLUCOSAMINE/CHONDROITIN SULF A 1 CAP CAPSULE PO SCH ×2 (09:45→21:44)
[2017-08-21] MEDS: DOCUSATE SODIUM 100 MG CAPSULE PO SCH (09:46)
[2017-08-21 09:47] LABS: Cortisol,AM 6.9 ug/dl (6.2-19.4)
[2017-08-21] MEDS: cefTRIAXone 2 GM in DEXTROSE 5% IN WATER 50 ML IV SCH (10:30)
[2017-08-21] MEDS ORDERED: cefTRIAXone 2 GM VIAL ONE (10:38)
[2017-08-21] MEDS: VANCOMYCIN 1,500 MG in 0.9 % SODIUM CHLORIDE 500 ML IV SCH (10:42)
--- NOTE | 2017-08-21 11:55 | XRay Report ---
CLINICAL INFORMATION: Reason for Exam:PICC PLACEMENT COMPARISON: 08/19/2017 FINDINGS: Moderate cardiomegaly is unchanged. Mediastinum and pulmonary vessels are normal. Right PICC line tip overlies the SVC right atrial junction. Moderate left pleural effusion with moderate consolidated atelectasis in the left base show slight progression. IMPRESSION: Right PICC line satisfactory position moderate left pleural effusion with consolidated atelectasis left base - slight worsening Interpreted and Authenticated by: Dutch Patel 08/21/17
--- NOTE | 2017-08-21 16:00 | Nephrology Progress Note ---
Subjective Patient information: Note initiated : 08/21/17 at 3:54 pm Service Date, if different from initiated Date: [] Patient: Lawrence Tompkins 76 y/o M admitted on 08/18/17 for Hyperkalemia, Septic Bursitis. Chief Complaint: [] Principal diagnosis: hyperkalemia Interval history: no overnight events feels better still no LE edema, denies worsening SOB no CP no dizziness,walked with PT x 2 serum K is normal today and renal function is much improved noted to have pancytopenia but states has seen hematology in for several yrs, no etiology was identified for his pancytopenia, later lost to follow up Pertinent ROS: as above Objective - Vital Signs Vital signs: Vital Signs Temp Pulse Resp BP Pulse Ox 08/21/17 13:29 97.7 F 16 141/65 97 08/21/17 09:24 119/57 08/21/17 07:45 97.7 F 16 140/69 96 08/21/17 03:48 97.2 F 16 131/64 95 08/21/17 00:15 97.9 F 16 124/49 94 08/20/17 21:19 73 16 93 08/20/17 19:59 98.0 F 16 143/69 97 08/20/17 16:59 98.2 F 18 140/77 97 Intake and Output 08/21/17 08/21/17 08/21/17 05:59 13:59 21:59 Intake Total 480 / 480 480 / 480 Output Total 950 / 950 625 / 625 400 / 400 Balance -470 / -470 -145 / -145 -400 / -400 Intake: Oral 480 / 480 480 / 480 Output: Urine Catheter Amount 950 / 950 425 / 425 Void Amount 200 / 200 400 / 400 Other: Meal Lunch Percent of Meal Consumed 100% Feeding Ability Assist with Tray Set Up # Bowel Movements 1 Weight 211 lb 3.2 oz Patient Weight 08/22/17 05:59 Weight 211 lb 3.2 oz Intake & Output: Intake & Output 08/21/17 08/21/17 08/21/17 05:59 13:59 21:59 Intake Total 480 / 480 480 / 480 Output Total 950 / 950 625 / 625 400 / 400 Balance -470 / -470 -145 / -145 -400 / -400 Weight 211 lb 3.2 oz Intake: Oral 480 / 480 480 / 480 Output: Urine Catheter Amount 950 / 950 425 / 425 Void Amount 200 / 200 400 / 400 Other: Meal Lunch Percent of Meal Consumed 100% Feeding Ability Assist with Tray Set Up # Bowel Movements 1 - General Appearance General appearance: appears started age EENT: mucous membranes moist Neck: no JVD Respiratory: clear Cardiology: no rub, no edema, regular rate, regular rhythm Gastrointestinal: no tenderness, no guarding Integumentary: warm and dry Neurologic: alert and oriented x3 Musculoskeletal: no erythema, no cyanosis, no clubbing Psychiatric: mood/affect appropriate - Lab 08/21/17 03:45 08/21/17 03:45 Most recent lab results Calcium 8.1 mg/dl (8.6-10.4) L 08/21/17 03:45 Phosphorus 2.9 mg/dL (2.7-4.5) 08/21/17 03:45 Magnesium 2.2 mg/dL (1.6-2.5) 08/21/17 03:45 Assessment and Plan (1) Acute on chronic renal failure acute on chronic renal failure no significant proteinuria renal US negative s.creat is down to 1.7 today, unknown baseline but s.creat was 1.6 a month ago JENNIFER atop CKD likely from use of bactrim, CHF, use of NSAIDS and also uses spironolactone and ACEI no hyperkalemia today, no acidosis pancytopenia, chronic history, b12 and folate normal, spep and upep pending noted to have low cortisol but repeat labs and stim test ok labs discussed with the patient and his family will resume lasix at 40mg po daily will follow up on labs tomorrow to ensure stable and no further K issues, if OK may discharge home but would recommend to hold lisinopril and aldactone for now , plan would be to resume lisinopril atleast as outpt will obtain all old records to see if hyperkalemia was an issue at all requested to avoid NSAIDS requested dietitian to go over low sodium, low K diet, hopefully this and no NSAIDS will help prevent recurrent CHF also will need close cardiology follow up Will follow along Thank you for giving me an opportunity to participate in Mr rhodes's medical care, appreciate it Status: Acute (2) Hyperkalemia Status: Acute (3) Pancytopenia Status: Acute
--- NOTE | 2017-08-21 17:47 | Internal Med Progress Note ---
Medical - PN: Subj Patient information: Note initiated : 08/21/17 at 5:43 pm Service Date, if different from initiated Date: [] Patient: Lawrence Tompkins a 76 y/o M admitted on 08/18/17 for Hyperkalemia, Septic Bursitis. Chief Complaint: [] Interval history: Mr. Tompkins is a 76 year old M with history of heart failure, and multiple other medical problems presents to the emergency room today after being sent there from outpatient same-day surgery. The patient had been in the same day surgery suit for drainage of his infected bursa. His preop labs showed elevated potassium and therefore he was sent to the emergency room. The patient had no acute complaints or concerns. The patient has been started on Bactrim and Keflex by his surgeon I believe 3 or 4 days ago. The patient has a history of heart failure, was admitted at [facility] approximately a month ago I believe at the end of June with symptoms of heart failure. He also had similar problems with potassium at that time. His potassium was elevated. He was advised to stop his Aldactone and increase the dose of Lasix at the time of discharge. The patient however is still taking Aldactone or spironolactone at this time. I do not think he has made any changes to his dose of Lasix. The patient is also on lisinopril. In the ER the patient denies any acute complaints, admit to having some changes in vision, which makes it difficult to read, denies any headaches, chr dizziness alysa when standing, he has chronic shortness of breath that has been getting worse over the last few months. He has increased swelling in his legs and admits to weight gain. He also admits to distention of abdomen and irregular bowels in which he has intermittent constipation and diarrhea. Denies any acute constipation at present. In the emergency room patient had stable vital signs, had no increased oxygen needs, was afebrile, blood pressure on the lower end of normal. In the emergency room it was noted his potassium was 6.8, he received calcium gluconate as well as Kayexalate. Repeat potassium came down to 6.0. Patient also has elevated creatinine his creatinine at baseline was 1.6 from previous discharge, creatinine was 2.2 today. Patient is being admitted to the hospital given persistent hyperkalemia, worsening renal function. He wishes to be full code. 08/19 Pt seen examined, no acute overnight issues, his cxr concerning for chf and pna , he was started on abx, and IV lasix given, this AM repeat CXR shows resolved chf, and left side effusion with atelectasis. procalcitonin is neg, The patient notes he has had some accident in the past, and has had left sided lung issues, his previous imaging including CTA done in the previous hsopitaliztion does not show any malignancy. The patient remains hyperkalemic, K was 5.9 yesterday, and is 5.8 today, creat is 2.3 garduno placed with clear urine draining, pt is neg 4500 so far repeat kayexalate given, albuterol harrt neg, IV lasix, dextrose and insulin given this AM, repeat K is pending, if improved ok to go for surgery Given persistent hyperkalemia, concern for chf, pna, hang, his status was changed to inpt status since yesterday 08/20 Pt seen examined sitting comfortably in bed, in good spirits, his K unfortunately worsened to 5.6 today, his renal function also is worse compared to yesterday evening d/c IV lasix and give 250 cc saline bolus He has been off aldactone and lisinopril since admission, I was hoping that his potassium would normalize, nephrolgoy consult expand workup. repeat kayexalate. he is s/p busrsitis reatment on vanco and rocephin for infection. awaiting sensitivities, ok for d/c from ortho stand point. 08/21 Pt seen examined, no acute overnight events, K this AM beter, creat better, pt seen by nephrology consult appreciated Cortisol was low at 4AM, stims test done pt overall fells better drain removed by ortho picc placed for 2 weeks of planned antibiotics advised not to go outside the country given overall poor health. microbiology shows staph, sensitivities pending. Pertinent ROS: Denies headache, dizziness Denies chest pain, palpitations Denies cough or shortness of breath Denies abdominal pain, nausea or vomiting. - Constitutional Vitals: Vital Signs Temp Pulse Resp BP Pulse Ox 98.8 F 73 16 157/58 97 08/21/17 16:15 08/20/17 21:19 08/21/17 16:15 08/21/17 16:15 08/21/17 16:15 Period Temp Pulse Resp BP Sys/Burnett Pulse Ox Last 24 Hr 97.2 F-98.8 F 73 16-16 119-157/49-69 93-97 Intake and Output 08/21/17 08/21/17 08/21/17 05:59 13:59 21:59 Intake Total 480 / 480 480 / 480 360 / 360 Output Total 950 / 950 625 / 625 400 / 400 Balance -470 / -470 -145 / -145 -40 / -40 Weight 211 lb 3.2 oz Patient Weight 08/22/17 05:59 Weight 211 lb 3.2 oz Intake & Output: Intake & Output 08/21/17 08/21/17 08/21/17 05:59 13:59 21:59 Intake Total 480 / 480 480 / 480 360 / 360 Output Total 950 / 950 625 / 625 400 / 400 Balance -470 / -470 -145 / -145 -40 / -40 Weight 211 lb 3.2 oz Intake: Oral 480 / 480 480 / 480 360 / 360 Output: Urine Catheter Amount 950 / 950 425 / 425 Void Amount 200 / 200 400 / 400 Other: Meal Lunch Dinner Percent of Meal Consumed 100% 100% Feeding Ability Assist with Tray Set Up Assist with Tray Set Up # Bowel Movements 1 Exam: Constitutional; Afebrile, cooperative, alert, not in distress. Eyes- No icterus, , No periorbital swelling Ears- Ext ear normal, hearing normal to conversation. Neck- Midline trachea, supple Respiratory system: Air Entry equal on both sides, No crackles or wheezing, no rhonchi. CVS- Rate rhythm regular, S1,S2 heard, no gallop, no rub. 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 Medical - PN: Obj Da - Labs CBC & Chem 7: 08/21/17 03:45 08/21/17 03:45 Labs: Abnormal Lab Results 08/21/17 08/21/17 08/21/17 03:48 03:45 03:45 WBC 3.3 L RBC 3.71 L Hgb 10.3 L Hct 30.7 L RDW Plt Count 92 L MPV Gran % Lymph % (Auto) Lymph # (Auto) 0.6 L Potassium Chloride BUN 30 H Creatinine 1.7 H Glucose Uric Acid Calcium 8.1 L NT-Pro-B Natriuret Pep Albumin (PEP) 3.00 L Cortisol AM Sample 1.0 L Urine RBC 08/20/17 08/20/17 08/20/17 14:11 09:50 03:50 WBC RBC Hgb Hct RDW Plt Count MPV Gran % Lymph % (Auto) Lymph # (Auto) Potassium 5.6 H Chloride 94 L BUN 37 H 40 H Creatinine 2.2 H 2.6 H Glucose 183 H 178 H Uric Acid 8.5 H Calcium 8.3 L 8.0 L NT-Pro-B Natriuret Pep Albumin (PEP) Cortisol AM Sample Urine RBC 2 H 08/20/17 08/19/17 08/19/17 03:50 11:22 11:22 WBC 4.1 L RBC 3.87 L Hgb 10.9 L Hct 32.8 L RDW 14.6 H Plt Count 99 L MPV 10.8 H Gran % 83.9 H Lymph % (Auto) 11.4 L Lymph # (Auto) 0.5 L Potassium 5.3 H Chloride BUN 32 H Creatinine 2.0 H Glucose Uric Acid Calcium 8.5 L NT-Pro-B Natriuret Pep 972.0 H Albumin (PEP) Cortisol AM Sample Urine RBC 08/19/17 08/19/17 08/18/17 03:40 03:40 17:29 WBC RBC 3.64 L Hgb 10.2 L Hct 30.9 L RDW Plt Count 82 L MPV 10.7 H Gran % Lymph % (Auto) 12.0 L Lymph # (Auto) 0.6 L Potassium 5.8 H 5.9 H* Chloride 95 L BUN 36 H 39 H Creatinine 2.3 H 2.0 H Glucose Uric Acid Calcium 8.3 L 8.5 L NT-Pro-B Natriuret Pep Albumin (PEP) Cortisol AM Sample Urine RBC 08/18/17 17:29 WBC RBC Hgb Hct RDW Plt Count MPV Gran % Lymph % (Auto) Lymph # (Auto) Potassium 6.0 H* Chloride BUN 41 H Creatinine 2.2 H Glucose Uric Acid Calcium 8.5 L NT-Pro-B Natriuret Pep Albumin (PEP) Cortisol AM Sample Urine RBC Meds: Medications Acetaminophen (Tylenol) 650 mg PO Q6HP PRN PRN Reason: PAIN/FEVER > 101 Hydrocodone Bitart/Acetaminophen ([place] 5/325mg) 0 tab PO Q4HP PRN PRN Reason: PAIN LEVEL 3-6 Aspirin (Aspirin) 81 mg PO DAILY [facility] Last Admin: 08/21/17 09:45 Dose: 81 mg [facility] Last Admin: 08/21/17 17:10 Dose: 25 mg Docusate Sodium (Colace) 100 mg PO DAILY [facility] Last Admin: 08/21/17 09:46 Dose: Not Given Finasteride (Proscar) 5 mg PO DAILY [facility] Last Admin: 08/21/17 09:45 Dose: 5 mg Furosemide (Lasix) 40 mg PO DAILY [facility] Last Admin: 08/21/17 09:45 Dose: 40 mg Glucosamine/Chondroitin (Glucosamine-Chondroitin Cap) 1 cap PO BID [facility] Last Admin: 08/21/17 09:45 Dose: 1 cap Heparin Sodium (Porcine) (Heparin Flush) 2 ml IV Q12 [facility] Last Admin: 08/21/17 13:51 Dose: 2 ml Vancomycin HCl 1,500 mg/ (Sodium Chloride) 500 mls @ 250 mls/hr IV Q24H [facility] Last Admin: 08/21/17 10:42 Dose: 333 mls/hr Ceftriaxone Sodium 2 gm/ (Dextrose) 50 mls @ 100 mls/hr IV Q24H [facility] Last Admin: 08/21/17 10:30 Dose: 100 mls/hr Iron Carb/Multivit/Dowell/Folic Acid (Multivitamin W/Minerals) 1 tab PO DAILY [facility] Last Admin: 08/21/17 09:45 Dose: 1 tab Magnesium Oxide (Magnesium Oxide) 400 mg PO [facility] Last Admin: 08/20/17 20:17 Dose: 400 mg Morphine Sulfate (Morphine) 0 mg IV Q1HP PRN PRN Reason: PAIN LEVEL > 6 Naloxone HCl (Narcan) 0.1 mg IV Q2MIN PRN PRN Reason: Opiate Reversal Ondansetron HCl (Zofran) 4 mg IV Q4HP PRN PRN Reason: Nausea And Vomiting Oxycodone/Acetaminophen (Percocet 5-325 Mg) 1 tab PO Q4HP PRN PRN Reason: PAIN LEVEL 3-6 Last Admin: 06/03/18 22:41 Dose: 1 tab Paroxetine HCl (Paxil) 20 mg PO DAILY [facility] Last Admin: 08/21/17 09:45 Dose: 20 mg Pramipexole Dihydrochloride (Mirapex) 1 mg PO [facility] Last Admin: 08/20/17 20:17 Dose: 1 mg Pramipexole Dihydrochloride (Mirapex) 0.5 mg PO BIDP PRN PRN Reason: RESTLESS LEGS Pregabalin (Lyrica) 150 mg PO BID [facility] Last Admin: 08/21/17 09:45 Dose: 150 mg Simvastatin (Zocor) 40 mg PO HS [facility] Last Admin: 08/20/17 20:17 Dose: 40 mg Sodium Chloride (Saline Flush) 10 ml IV Q8 [facility] Last Admin: 08/21/17 12:18 Dose: 10 ml Sodium Chloride (Saline Flush) 10 ml IV UD PRN PRN Reason: FLUSH Sodium Chloride (Saline Flush) 10 ml IV Q12 [facility] Last Admin: 08/21/17 12:18 Dose: Not Given Sotalol HCl (Betapace) 80 mg PO BID [facility] Last Admin: 08/21/17 09:45 Dose: 80 mg Tamsulosin HCl (Flomax) 0.8 mg PO [facility] Last Admin: 08/20/17 20:17 Dose: 0.8 mg Trazodone HCl (Desyrel) 50 mg PO [facility] Last Admin: 08/20/17 22:42 Dose: 50 mg Vancomycin HCl (Vancomycin Per Pharmacy) 1 order IV UD [facility] Medical - PN: A/P - Time Spent With Patient Total time spent is greater than 50% in coordination of care (as documented) at patient's floor/unit and/or counseling patient: - Narrative A/P Narrative: A/P Acute hyperkalemia: improving, K now much better, monitor for 1 more day Low cortisol: AM cortisol was 1 at 4AM Laboratory Tests 08/21/17 08/21/17 08/21/17 03:45 03:48 10:00 TSH 1.04 Random Cortisol 16.8 Cortisol AM Sample 1.0 L 08/21/17 10:30 TSH Random Cortisol 20.2 Cortisol AM Sample Cosyntropin stimulation done shows adequate response, chr thyrombocytopenia : pchr issue, Platlet count > 75, monitor for now. stable , Infectious bursitis: vs septic elbow? on vanco and rocephin, d/c zosyn no suspicion for pna. staph aureus on microbiology, pending results PNA/ HCAP: pt notes this is chr issue, previous imaging reviewed ot rachel, d./c zosyn Dizzines: Likely orthostatic in nature, he does have elevated hr on orthostatics. Afib/ s/p pacemaker: resume sotalol, continue coreg, CHF with preserved LVEF: on aldactone for same, also on lisionpril and sotalol. hold aldactone and lisninopril for now. mild chf noted yesterday has resolved today, not on oxgyen HTN: resume meds except lisinopril and aldactone. Anxiety/ Depression: resume home meds DVT SCD for now, renal diet. Full code Medical - PN: Qual - Stroke Symptom Onset Unknown: No - VTE Deep Vein Thrombosis/Pulmonary Embolism Present on Admission: No
[2017-08-21] MEDS ORDERED: oxyCODONE/APAP 5/325MG TABLET PO PRN (18:16)
[2017-08-21] MEDS ORDERED: VANCOMYCIN PER PHARMACY IV SCH (18:16)
[2017-08-21] MEDS ORDERED: PRAMIPEXOLE 0.25 MG TABLET PO PRN (18:16)
[2017-08-21] MEDS ORDERED: ACETAMINOPHEN 325 MG TABLET PO PRN (18:16)
[2017-08-21] MEDS ORDERED: HYDROcodone/APAP 5/325MG TABLET PO PRN (18:16)
[2017-08-21] MEDS ORDERED: NALOXONE HCL 0.4 MG/ML VIAL IV PRN (18:16)
[2017-08-21] MEDS ORDERED: ONDANSETRON 4 MG/2 ML VIAL IV PRN (18:16)
[2017-08-21] MEDS ORDERED: TAMSULOSIN 0.4 MG CAPSULE PO SCH (21:00)
[2017-08-21] MEDS ORDERED: SIMVASTATIN 40 MG TABLET PO SCH (21:00)
[2017-08-21] MEDS ORDERED: PRAMIPEXOLE 1 MG TABLET PO SCH (21:00)
[2017-08-21] MEDS ORDERED: traZODone HCL 50 MG TABLET PO SCH (21:00)
[2017-08-21] MEDS ORDERED: PREGABALIN 150 MG CAPSULE PO SCH (21:00)
[2017-08-21] MEDS ORDERED: MAGNESIUM OXIDE 400 MG TABLET PO SCH (21:00)
[2017-08-22] MEDS: 0.9 % SODIUM CHLORIDE 10 ML SYRINGE IV SCH (05:11)
[2017-08-22 05:34] LABS: Basophils # (Auto) 0 K/mcL (0.0-0.3); Basophils % (Auto) 0.4 % (0.0-2.0); Eosinophils # (Auto) 0.1 K/mcL (0.0-0.7); Granulocytes % (Auto) 69.7 % (38.0-78.0); Lymphocytes # (Auto) 0.6 K/mcL (1.5-4.8); Lymphocytes % (Auto) 18.3 % (15.5-49.0); Mean Cell Volume 85.1 fL (80.0-100.0); Mean Corpuscular HGB Conc 32.9 g/dL (31.0-36.0); Monocytes # (Auto) 0.3 K/mcL (0.1-0.9); Monocytes % (Auto) 9.6 % (1.0-12.0); Platelet Count 89 K/mcL (140-440); RBC 3.76 M/mcL (4.50-5.90); Red Cell Distribution Width 14.5 % (11.5-14.5)
[2017-08-22 06:18] LABS: ALT/SGPT 15 U/l (0-40); Albumin 3.2 gm/dL (3.2-5.2); Albumin/Globulin Ratio 1.1 (1.0-2.3); Alkaline Phosphatase 51 U/L (39-117); Bilirubin,Direct < 0.2 mg/dL (0.0-0.3); Blood Urea Nitrogen 23 mg/dl (8-23); Gamma Glutamyl Transpeptidase 17 U/L (8-61); Uric Acid 6.8 mg/dL (2.5-8.0)
[2017-08-22] MEDS ORDERED: CARVEDILOL 12.5 MG TABLET PO SCH (08:00)
[2017-08-22] MEDS ORDERED: ASPIRIN 81 MG TAB.CHEW PO SCH (09:00)
[2017-08-22] MEDS ORDERED: FINASTERIDE 5 MG TABLET PO SCH (09:00)
[2017-08-22] MEDS: GLUCOSAMINE/CHONDROITIN SULF A 1 CAP CAPSULE PO SCH (09:00)
[2017-08-22] MEDS ORDERED: MULTIVIT,THER IRON,CA,FA & MIN 1 TABLET PO SCH (09:00)
[2017-08-22] MEDS ORDERED: cefTRIAXone 2 GM in DEXTROSE 5% IN WATER 50 ML IV SCH (09:00)
[2017-08-22] MEDS ORDERED: DOCUSATE SODIUM 100 MG CAPSULE PO SCH (09:00)
[2017-08-22] MEDS ORDERED: VANCOMYCIN 1,500 MG in 0.9 % SODIUM CHLORIDE 500 ML IV SCH (09:00)
[2017-08-22] MEDS ORDERED: PARoxetine 20 MG TABLET PO SCH (09:00)
[2017-08-22] MEDS ORDERED: FUROSEMIDE 40 MG TABLET PO SCH (09:00)
[2017-08-22] MEDS: SOTALOL 80 MG TABLET PO SCH (10:08)
--- NOTE | 2017-08-22 12:52 | Discharge Summary ---
Medical - DS: Prov Patient information: Note initiated : 08/22/17 at 12:49 pm Service Date, if different from initiated Date: [] Patient: Lawrence Tompkins 76 y/o M admitted on 08/18/17 for Hyperkalemia, Septic Bursitis. Chief Complaint: [] Date of admission: 08/18/17 17:17 Discharge date: 08/22/17 Primary care physician: Ed Charles Admitting clinician: Fernandez Mercado Consults: 08/18/17 16:20 Consult to Physician [CONS] Stat Comment: Consulting Provider: Fernandez Mercado Reason For Exam: Physician to Consult 08/18/17 17:17 Consult to Physician [CONS] Stat Comment: bursitis Consulting Provider: Junaid Tatum Reason For Exam: Physician to Consult 08/20/17 09:56 Consult to Physician [CONS] Routine Comment: Consulting Provider: Azeb Helton Reason For Exam: Physician to Consult Discharging clinician: Fernandez Mercado Medical - DS: Meds - Discharge Medications Prescriptions: cefTRIAXone [Rocephin] 2 gm IM Q24H #12 vial Furosemide [Lasix] 40 mg PO DAILY #30 tab Lisinopril [Zestril] 10 mg PO DAILY #30 tab oxyCODONE/APAP [Percocet 5-325 mg] 1 tab PO Q4HP PRN #60 tab PRN Reason: Pain Level 3-6 Pregabalin [Lyrica] 150 mg PO BID #60 cap Active and Home Medications: Home Medications Carvedilol [Coreg] 25 mg PO BID 08/18/17 [History Confirmed 08/18/17 Last Taken 08/18/17 08:00] Finasteride [Proscar] 5 mg PO DAILY 08/18/17 [History Confirmed 08/18/17 Last Taken 08/17/17 08:00] Lisinopril [Zestril] 20 mg PO DAILY 08/18/17 [History Confirmed 08/18/17 Last Taken 08/18/17 08:00] PARoxetine [Paxil] 20 mg PO DAILY 08/18/17 [History Confirmed 08/18/17 Last Taken 08/17/17 08:00] Aspirin [Melody Chewable Aspirin] 81 mg PO DAILY 08/19/17 [History Confirmed 05/07 Last Taken 08/18/17 08:00] Cialis 10 mg PO UD 08/19/17 [History Confirmed 08/19/17 Last Taken Unknown] Docusate Sodium [Colace] 100 mg PO DAILY 08/19/17 [History Confirmed 08/19/17 Last Taken 08/18/17 08:00] Furosemide [Lasix] 60 mg PO DAILY 08/19/17 [History Confirmed 08/19/17 Last Taken 08/18/17 08:00] Glucosamine Chondroitin Tab 1,200 mg PO BID 08/19/17 [History Confirmed Last Taken 08/17/17 20:00] Magnesium Oxide [Magox 400] 400 mg PO HS 08/19/17 [History Confirmed 08/19/17 Last Taken 08/17/17 20:00] Minocycline [Minocin] 100 mg PO BID #30 cap 08/19/17 [Rx Last Taken Unknown] Multivit with Calcium,Iron,Min [Essential Daily] 1 each PO DAILY 08/19/17 [ History Confirmed 08/19/17 Last Taken 08/18/17 08:00] Pramipexole Di-HCl [Mirapex] 0.5 mg PO BID PRN 08/19/17 [History Confirmed 08/19 Last Taken 08/18/17 08:00] Pravastatin Sodium [Pravachol] 80 mg PO DAILY 08/19/17 [History Confirmed Last Taken 08/17/17 20:00] Pregabalin [Lyrica] 225 mg PO BID 08/19/17 [History Confirmed 08/19/17 Last Taken 08/18/17 08:00] Sotalol HCl [Sorine] 80 mg PO BID 08/19/17 [History Confirmed 08/19/17 Last Taken 08/18/17 08:00] Tamsulosin [Flomax] 0.8 mg PO HS 08/19/17 [History Confirmed 08/19/17 Last Taken 08/17/17 20:00] Temazepam [Restoril] 7.5 mg PO HS 08/19/17 [History Confirmed 08/19/17 Last Taken 08/18/17 20:00] oxyCODONE/APAP [Percocet 5-325 mg] 1 tab PO Q4HP PRN #60 tab 08/19/17 [Rx Last Taken Unknown] cefTRIAXone [Rocephin] 2 gm IM Q24H #12 vial 08/22/17 [Rx Last Taken Unknown] Medical - DS: Hosp Hospital course: Mr. Tompkins is a 76 year old M with history of heart failure, and multiple other medical problems presented to the emergency room today after being sent there from outpatient same-day surgery. The patient had been in the same day surgery suit for drainage of his infected bursa. His preop labs showed elevated potassium and therefore he was sent to the emergency room. The patient had no acute complaints or concerns. The patient has been started on Bactrim and Keflex by his surgeon I believe 3 or 4 days ago. The patient has a history of heart failure, was admitted at [facility] approximately a month ago I believe at the end of June with symptoms of heart failure. He also had similar problems with potassium at that time. His potassium was elevated. He was advised to stop his Aldactone and increase the dose of Lasix at the time of discharge. The patient however is still taking Aldactone or spironolactone at this time. I do not think he has made any changes to his dose of Lasix. The patient is also on lisinopril. In the ER the patient denies any acute complaints, admit to having some changes in vision, which makes it difficult to read, denies any headaches, chr dizziness alysa when standing, he has chronic shortness of breath that has been getting worse over the last few months. He has increased swelling in his legs and admits to weight gain. He also admits to distention of abdomen and irregular bowels in which he has intermittent constipation and diarrhea. Denies any acute constipation at present. In the emergency room patient had stable vital signs, had no increased oxygen needs, was afebrile, blood pressure on the lower end of normal. In the emergency room it was noted his potassium was 6.8, he received calcium gluconate as well as Kayexalate. Repeat potassium came down to 6.0. Patient also has elevated creatinine his creatinine at baseline was 1.6 from previous discharge, creatinine was 2.2 today. Patient is being admitted to the hospital given persistent hyperkalemia, worsening renal function. 6/ Pt seen examined, no acute overnight issues, his cxr concerning for chf and pna , he was started on abx, and IV lasix given, this AM repeat CXR shows resolved chf, and left side effusion with atelectasis. procalcitonin is neg, The patient notes he has had some accident in the past, and has had left sided lung issues, his previous imaging including CTA done in the previous hospitalization does not show any malignancy. The patient remains hyperkalemic, K was 5.9 yesterday, and is 5.8 today, creat is 2.3 garduno placed with clear urine draining, pt is neg 4500 so far repeat Kayexalate given, albuterol harrt neg, IV Lasix, dextrose and insulin given this AM, repeat K is pending, if improved ok to go for surgery Given persistent hyperkalemia, concern for chf, pna, jennifer, his status was changed to inpt status since yesterday Acute hyperkalemia:resolved, multifactorial due to medications and renal failure. , off aldactone now, on lasix 40mg qam, resume lisionpril at 10mg dailiy dose and recheck labs in few days, follow up with nephrology as outpatient. JENNIFER on ckd: creat back to baseline at discharge, monitor as outpatient, follow up with nephrology. Low cortisol: AM cortisol was 1 at 4AM, yesterday, 8AM lab normal Cosyntropin stimulation done shows adequate response, chr thyrombocytopenia : pchr issue, Platlet count > 75,. stable, Infectious bursitis: chr issues, MSSA staph, s/p drainage, given that its been difficult to treat, will use IV abx for two weeks, IV rocepin 2 gms for 12 more days. via picc line. PNA/ HCAP:/ left lung effusion: chr issue, has been worked up in past it seems, no e/o infection Dizzines: Likely orthostatic in nature, he does have elevated hr on orthostatics. follow up as outpatient. Afib/ s/p pacemaker: continue sotalol, continue coreg, not on chr anticoagulatin , not sure why CHF with preserved LVEF: was on aldactone and lasix, HTN: resume meds d/c aldactone, resume lisinopril at 10mg dailiy. Anxiety/ Depression: resume home meds BPH continue home meds Discharge diagnosis: Hyperkalemia, Acute Kidney Injury - Time Spent with Patient Total time spent providing and/or coordinating discharge services: Greater than 30 minutes Medical - DS: Exam - Constitutional Vitals: Vital Signs Temp Pulse Resp BP BP Pulse Ox 08/22/17 12:00 98.0 F 68 18 129/62 96 08/22/17 03:48 98.0 F 69 18 125/48 94 08/21/17 20:00 98.2 F 78 16 151/59 96 08/21/17 16:15 98.8 F 16 157/58 97 08/21/17 13:29 97.7 F 16 141/65 97 Intake and Output 08/21/17 08/22/17 08/22/17 21:59 05:59 13:59 Intake Total 360 / 360 Output Total 400 / 400 Balance -40 / -40 Intake: Oral 360 / 360 Output: Void Amount 400 / 400 Other: Meal Dinner Percent of Meal Consumed 100% Feeding Ability Assist with Tray Set Up # Voids 1 Weight 252 lb Additional comments: Constitutional; Afebrile, cooperative, alert, not in distress. Eyes- No icterus, , No periorbital swelling Ears- Ext ear normal, hearing normal to conversation. Neck- Midline trachea, supple Respiratory system: Air Entry equal on both sides, No crackles or wheezing, no rhonchi. CVS- Rate rhythm irregular, S1,S2 heard, no gallop, no rub. Abdomen- Soft nontender abdomen, no organomegaly, no tenderness, no guarding or rigidity, HEEL SEWER- AOOx3, moving all extremities, no gross focal deficit noted. Medical - DS: Data Procedures and tests throughout hospitalization: Renal USG IMPRESSION: Both kidneys are normal Labs on day of discharge: Labs from last 24 hours 08/22/17 08/22/17 08/22/17 08:17 03:27 03:27 WBC 3.1 L RBC 3.76 L Hgb 10.5 L Hct 32.0 L MCV 85.1 MCH 28.0 MCHC 32.9 RDW 14.5 Plt Count 89 L MPV 10.1 Gran % 69.7 Lymph % (Auto) 18.3 [place] % (Auto) 9.6 Eos % (Auto) 2.0 Baso % (Auto) 0.4 Gran # 2.2 Lymph # (Auto) 0.6 L [place] # (Auto) 0.3 Eos # (Auto) 0.1 Baso # (Auto) 0 Sodium 139 Potassium 4.3 Chloride 101 Carbon Dioxide 28 Anion Gap 10.0 BUN 23 Creatinine 1.3 H GFR Calculation 52 Glucose 85 Uric Acid 6.8 Calcium 8.4 L Phosphorus 2.7 Magnesium 1.9 Total Bilirubin 0.3 Direct Bilirubin < 0.2 GGT 17 AST 17 ALT 15 Alkaline Phosphatase 51 Lactate Dehydrogenase 157 Total Protein 6.2 Albumin 3.2 Albumin (PEP) Globulin 3.0 Globulin (PEP) Albumin/Globulin Ratio 1.1 Albumin/Globulin (PEP) Mgilr-9-Hhyezgsai Srvzi-3-Bzlprxvzk Beta Globulins Gamma Globulins PEP Interpretation Triglycerides 169 H Vancomycin Trough 12.4 08/21/17 03:45 WBC RBC Hgb Hct MCV MCH MCHC RDW Plt Count MPV Gran % Lymph % (Auto) [place] % (Auto) Eos % (Auto) Baso % (Auto) Gran # Lymph # (Auto) [place] # (Auto) Eos # (Auto) Baso # (Auto) Sodium Potassium Chloride Carbon Dioxide Anion Gap BUN Creatinine GFR Calculation Glucose Uric Acid Calcium Phosphorus Magnesium Total Bilirubin Direct Bilirubin GGT AST ALT Alkaline Phosphatase Lactate Dehydrogenase Total Protein Albumin Albumin (PEP) 3.00 L Globulin Globulin (PEP) 2.9 Albumin/Globulin Ratio Albumin/Globulin (PEP) 1.0 Wiokr-8-Bdhobvcxg 0.27 Izpnw-4-Tdicmdssd 0.70 Beta Globulins 0.93 Gamma Globulins 1.00 PEP Interpretation Triglycerides Vancomycin Trough Preliminary micro results at discharge 08/19/17 17:33 Anaerobic Culture - Preliminary Elbow - Left 08/18/17 19:39 Blood Culture - Preliminary Blood 08/18/17 19:32 Blood Culture - Preliminary Blood Medical - DS: A/P - Patient/Caregiver Discharge Instructions Activity: increase activity as tolerated Diet: Cardiac Additional Instructions: IV rocephin 2gms via picc line for 12 days, PICC line care per facility protocol D/C picc line after last dose of antibiotic Follow up with Dr Tatum as per his instructions Follow up with Dr Helton in 1 week, check bmp in 3-4 days and have the labs faxed to Dr Vallejo office. Go to the ER if worsening symptoms, chest pain, shortness of breath, fever, chills or any other acute concerns. We have cut the dose of lisinopril from 20mg to 10mg You will now be on lasix 40mg once daily I have cut back on the dose of lyrica from 225 bid to 150 bid Please do not take the Aldactone (spironolactone) Follow up with your pcp in 1-2 weeks. Prescriptions: cefTRIAXone [Rocephin] 2 gm IM Q24H #12 vial Minocycline [Minocin] 100 mg PO BID #30 cap oxyCODONE/APAP [Percocet 5-325 mg] 1 tab PO Q4HP PRN #60 tab PRN Reason: Pain Level 3-6 - Follow up Plan Follow up with: Azeb Helton MD [Physician] - 08/29/17 1:45 pm Kb Nicholson MD [Referring] - 09/19/17 1:40 pm (Appointment will be with Dina Chambers at the [facility]; [address]) Junaid Tatum MD [Physician] - 09/01/17 1:00 pm (This appointment will be with Sebastián Morales as Dr. Tatum is out of the office.) Ed Charles DO [Primary Care Provider] - 08/28/17 3:00 pm (At the [place] [facility]) Disposition: Home, Self-Care Prognosis: Good Rehab Potential: Good I certify that the patient requires SNF services: No Overall status at discharge: patient is progressing back to baseline Medical - DS: Qual - VTE Deep Vein Thrombosis/Pulmonary Embolism Present on Admission: No
--- NOTE | 2017-08-22 17:20 | Nephrology Progress Note ---
Subjective Patient information: Note initiated : 08/22/17 at 5:18 pm Service Date, if different from initiated Date: [] Patient: Lawrence Tompkins 76 y/o M admitted on 08/18/17 for Hyperkalemia, Septic Bursitis. Chief Complaint: [] Principal diagnosis: hyperkalemia Interval history: seen this am feels well denies SOB, no LE edema denies any concerns eager to go home Pertinent ROS: as above Objective - Vital Signs Vital signs: Vital Signs Temp Pulse Resp BP Pulse Ox 08/22/17 16:27 98.0 F 68 18 129/62 96 08/22/17 12:00 98.0 F 68 18 129/62 96 08/22/17 03:48 98.0 F 69 18 125/48 94 08/21/17 20:00 98.2 F 78 16 151/59 96 Intake and Output 08/22/17 08/22/17 08/22/17 05:59 13:59 21:59 Intake Total 450 / 450 Balance 450 / 450 Intake: Oral 450 / 450 Other: Meal Lunch Percent of Meal Consumed 100% Feeding Ability Assist with Tray Set Up # Voids 1 Intake & Output: Intake & Output 08/22/17 08/22/17 08/22/17 05:59 13:59 21:59 Intake Total 450 / 450 Balance 450 / 450 Intake: Oral 450 / 450 Other: Meal Lunch Percent of Meal Consumed 100% Feeding Ability Assist with Tray Set Up # Voids 1 - General Appearance General appearance: appears started age EENT: mucous membranes moist Neck: no JVD Respiratory: clear Cardiology: no rub, no edema, regular rate, regular rhythm Gastrointestinal: no tenderness, no guarding Integumentary: warm and dry Neurologic: alert and oriented x3 Musculoskeletal: no cyanosis, no clubbing Psychiatric: mood/affect appropriate - Lab 08/22/17 03:27 08/22/17 03:27 Most recent lab results Calcium 8.4 mg/dl (8.6-10.4) L 08/22/17 03:27 Phosphorus 2.7 mg/dL (2.7-4.5) 08/22/17 03:27 Magnesium 1.9 mg/dL (1.6-2.5) 08/22/17 03:27 Assessment and Plan (1) Acute on chronic renal failure acute on chronic renal failure no significant proteinuria renal US negative s.creat is down to 1.3 today, unknown baseline but s.creat was 1.6 a month ago JENNIFER atop CKD likely from use of bactrim, CHF, use of NSAIDS and also uses spironolactone and ACEI no hyperkalemia today, no acidosis pancytopenia, chronic history, b12 and folate normal, spep and upep pending, has been a chronic issue left sided pleural effusion is also chronic labs discussed with the patient and his family continue lasix at 40mg po daily on discharge resume lisinopril 10mg po daily requested patient and family to ensure low sodium, low K diet, ensure no NSAIDS used stay hydrated call if any concerns follow up in clinic in one week Will follow along Thank you for giving me an opportunity to participate in Mr rhodes's medical care, appreciate it Status: Acute (2) Hyperkalemia Status: Acute (3) Pancytopenia Status: Acute
[2017-08-24 09:02] LABS: Adrenocorticotropic Hormone 22 pg/mL (6-50)
[2017-08-24 09:02] LABS: Alpha-2-Globulin 16 %; Pro/Creat Ratio 171 mg/g cre (22-128)
[2017-08-24 14:23] LABS: Aldosterone Serum < 1 ng/dL
== END 2017-08-22 14:10 | disposition home or self-care (01) | DRG 622 ==
LOC: ED 12:01 → ICU 12:01
PROVIDERS: ADMIT Internal Medicine; ATTEND Internal Medicine